=== PATIENT | female | born 1955 | race Caucasian/White ===

== ENCOUNTER 2017-02-05 12:19 | Emergency (ER) | payer BC ==
[~2017-02-05] VITALS: Ht 160 cm; Wt 90.0 kg
[~2017-02-05 12:19] MED LIST: ACETAMIN500 M2 PO; AMLODIPINE5 MG PO; ASA/BUT/CAF1 PO; ASPIRIN EC81 MG PO; C 250 PO; COQ-10100 M1 PO; COREG6.25 MG PO; DIOVAN HC1 PO; DIOVAN40 MG PO; EFFIENT5 MG PO; ELIQUIS5 MG PO; FUROSEMIDE20 MG PO; LEVOTHYROXIN125 MCG PO; LEVOTHYROXINE100 MCG PO; LEXAPRO10 MG PO; LIPITOR80 M1 PO; LOSARTAN POT25 MG PO; LYRICA50 MG PO; MEDDOSEPAK PO; METFORMIN500 M2 PO; METFORMIN500 MG PO; MOBIC15 MG PO; NITROSTAT0.4 MG SL; NORCO1 TA1 PO; NORVASC2.5 MG PO; OMEGA 31000 MG PO; PLAVIX75 MG PO; PRILOSEC20 MG/CAP PO; SOTALOL HCL80 MG PO; TRAMADOL HCL50 MG PO; XANAX0.25 MG PO
[2017-02-05 13:37] LABS: HEMATOCRIT 39.7 % (37.0-47.0); HEMOGLOBIN 13.6 g/dl (12.0-16.0); IMMATURE GRANULOCYTES 0.3 % (0.0-1.0); MEAN CELL VOLUME 88.6 fL CALC (80.0-100.0); MEAN CORPUSCULAR HGB 30.4 pG CALC (26.0-32.0); MEAN CORPUSCULAR HGB CONC 34.3 g/L CALC (32.0-36.0); NEUT# 9.81 thou/uL (2.00-7.15); RED BLOOD COUNT 4.48 mill/uL (4.20-5.60); RED CELL DISTRI WIDTH 12.6 % (11.5-15.5)
[2017-02-05 13:37] LABS: URINE BILIRUBIN - DIPSTICK NEGATIVE (NEGATIVE); URINE BLOOD DIPSTICK LARGE (NEGATIVE); URINE GLUCOSE - DIPSTICK NEGATIVE (NEGATIVE); URINE KETONE NEGATIVE (NEGATIVE); URINE LEUK ESTERASE NEGATIVE (NEGATIVE); URINE NITRITE - DIPSTICK NEGATIVE (Negative); URINE PROTEIN - DIPSTICK 100 mg/dL (NEG-TRACE); URINE SPECIFIC GRAVITY 1.025; URINE UROBILINOGEN - DIPSTICK 0.2 E.U./dL (0.2)
[2017-02-05 13:39] LABS: ALBUMIN 4.2 g/dL (3.2-5.0); ALKALINE PHOSPHATASE 158 u/l (38-126); ANION GAP 15 (6-22 (CALC)); BILIRUBIN, TOTAL 0.5 mg/dL (0.0-1.4); BUN 28 mg/dL (8-23); BUN/CREATININE RATIO 36 (12-20 (CALC)); CALCIUM 9.8 mg/dL (8.4-10.2); CARBON DIOXIDE 23 mmol/l (22-30); CHLORIDE 106 mmol/l (95-108); CREATININE 0.8 mg/dL (0.5-1.0); GFR > 60 ML/MIN (>=60 (CALC)); GFR FOR AFR.AMER. > 60 ML/MIN (>=60 (CALC)); GLUCOSE 129 mg/dL (82-115); SGOT/AST 23 u/l (9-36); SGPT/ALT 28 u/l (11-66); SODIUM 140 mmol/l (137-146); TOTAL PROTEIN 7.2 g/dL (6.3-8.2)
[2017-02-05 13:45] LABS: ACT PARTIAL THROMBO TIME 26.6 SECONDS (20.0-32.5); PROTHROMBIN TIME 11.3 SECONDS (9.0-12.5)
[2017-02-05 13:55] LABS: URINE COLOR BLOODY
[2017-02-05 13:56] LABS: URINE CLARITY BLOODY
[2017-02-05 13:59] LABS: URINE RBC TNTC RBC/hpf (0-5)
[2017-02-05] MEDS ORDERED: BACTRIM DS1 TAB PO (15:22)
[2017-02-05] MEDS ORDERED: DIFLUCAN150 MG PO (15:22)
[2017-02-05] MEDS ORDERED: PYRIDIUM200 MG PO (15:22)
[2017-02-05 15:29] VITALS: BP 140/72
== END 2017-02-05 15:30 | disposition home or self-care (01) | DRG 696 ==
LOC: ED 12:19
PROVIDERS: Emergency Medicine
DX: R31.0 Gross hematuria (principal); M54.5 Low back pain; R30.0 Dysuria

== ENCOUNTER 2018-05-26 17:33 | Observation (INO) | payer BC ==
[~2018-05-26] VITALS: Ht 160 cm; Wt 81.0 kg
[~2018-05-26 17:33] MED LIST changes: +BACTRIM DS1 TAB PO; +DIFLUCAN150 MG PO; +PYRIDIUM200 MG PO
[2018-05-26 18:43] LABS: HEMATOCRIT 42.9 % (37.0-47.0); HEMOGLOBIN 14.2 g/dl (12.0-16.0); IMMATURE GRANULOCYTES 0.5 % (0.0-1.0); MEAN CELL VOLUME 89.6 fL CALC (80.0-100.0); MEAN CORPUSCULAR HGB 29.6 pG CALC (26.0-32.0); MEAN CORPUSCULAR HGB CONC 33.1 g/L CALC (32.0-36.0); NEUT# 3.63 thou/uL (2.00-7.15); RED BLOOD COUNT 4.79 mill/uL (4.20-5.60); RED CELL DISTRI WIDTH 12.9 % (11.5-15.5)
[2018-05-26 18:56] LABS: ALBUMIN 4.5 g/dL (3.2-5.0); ALKALINE PHOSPHATASE 146 u/l (38-126); AMYLASE 71 u/l (30-110); ANION GAP 15 (6-22 (CALC)); BILIRUBIN, TOTAL 0.4 mg/dL (0.0-1.4); BUN 28 mg/dL (8-23); BUN/CREATININE RATIO 29 (12-20 (CALC)); CARBON DIOXIDE 21 mmol/l (22-30); CHLORIDE 107 mmol/l (95-108); GFR 56 ML/MIN (>=60 (CALC)); GFR FOR AFR.AMER. > 60 ML/MIN (>=60 (CALC)); LIPASE 239 u/l (23-300); POTASSIUM 4.7 mmol/l (3.5-5.1); SGOT/AST 20 u/l (9-36); SGPT/ALT 34 u/l (11-66); SODIUM 138 mmol/l (137-146); TOTAL PROTEIN 7.4 g/dL (6.3-8.2)
[2018-05-26] MEDS ORDERED: REPATHA140 MG/ML IM (19:04)
[2018-05-26] MEDS ORDERED: ZOLOFT50 MG PO (19:05)
[2018-05-26 19:07] LABS: MYOGLOBIN 22 ng/mL (0 - 62)
[2018-05-26 19:25] LABS: ACT PARTIAL THROMBO TIME 23.6 SECONDS (20.0-32.5); PROTHROMBIN TIME 10.9 SECONDS (9.0-12.5)
[2018-05-26 19:41] LABS: URINE BILIRUBIN - DIPSTICK NEGATIVE (NEGATIVE); URINE BLOOD DIPSTICK NEGATIVE (NEGATIVE); URINE CLARITY CLEAR; URINE COLOR YELLOW; URINE GLUCOSE - DIPSTICK NEGATIVE (NEGATIVE); URINE KETONE NEGATIVE (NEGATIVE); URINE LEUK ESTERASE NEGATIVE (NEGATIVE); URINE NITRITE - DIPSTICK NEGATIVE (Negative); URINE PROTEIN - DIPSTICK NEGATIVE (NEG-TRACE); URINE UROBILINOGEN - DIPSTICK 0.2 E.U./dL (0.2)
[2018-05-26 21:19] VITALS: BP 151/67
[2018-05-27 00:25] VITALS: BP 137/69
[2018-05-27 04:45] VITALS: BP 129/70
[2018-05-27 06:28] LABS: ANION GAP 10 (6-22 (CALC)); BUN 28 mg/dL (8-23); BUN/CREATININE RATIO 44 (12-20 (CALC)); CALCULATED LDLCHOLESTEROL 29 mg/dL (62-129 (CALC)); CARBON DIOXIDE 26 mmol/l (22-30); CHLORIDE 107 mmol/l (95-108); CHOLESTEROL HDL RATIO 4.1 (<4.4 (CALC)); CREATININE 0.6 mg/dL (0.5-1.0); GFR > 60 ML/MIN (>=60 (CALC)); GFR FOR AFR.AMER. > 60 ML/MIN (>=60 (CALC)); HDL CHOLESTEROL 28 mg/dL (>=40); MAGNESIUM 1.9 mg/dL (1.6-2.3); POTASSIUM 4.1 mmol/l (3.5-5.1); SODIUM 139 mmol/l (137-146); TOTAL CHOLESTEROL 115 mg/dl (0-199); TOTAL TRIGLYCERIDES 291 mg/dl (30-149); VLDL CHOLESTROL 58 mg/dl (1-41 (CALC))
[2018-05-27 07:30] VITALS: BP 134/61
[2018-05-27 11:19] VITALS: BP 134/75
[2018-05-27] MEDS ORDERED: MELATONIN MAXIMU5 MG PO (14:15)
[2018-05-27] MEDS ORDERED: SINGULAIR10 MG PO (14:19)
[2018-05-27] MEDS ORDERED: BAYER ASPIRIN E81 MG PO (14:26)
[2018-05-27] MEDS ORDERED: VICTOZA18 MG/3 ML SC (14:55)
== END 2018-05-27 15:59 | disposition home or self-care (01) | DRG 313 ==
LOC: ED 17:33 → ED-I 19:35 → ED 19:47 → MS2 19:48
PROVIDERS: Emergency Medicine; ADMIT Internal Medicine; ATTEND Internal Medicine
DX: R07.89 Other chest pain (principal); I25.10 Atherosclerotic heart disease of native coronary artery without angina pectoris; I10 Essential (primary) hypertension; E11.9 Type 2 diabetes mellitus without complications; K21.9 Gastro-esophageal reflux disease without esophagitis; E03.9 Hypothyroidism, unspecified; E78.5 Hyperlipidemia, unspecified; M41.9 Scoliosis, unspecified; G47.33 Obstructive sleep apnea (adult) (pediatric); F32.9 Major depressive disorder, single episode, unspecified; I48.0 Paroxysmal atrial fibrillation; M19.90 Unspecified osteoarthritis, unspecified site; R94.4 Abnormal results of kidney function studies; I25.2 Old myocardial infarction; Z79.01 Long term (current) use of anticoagulants; Z95.5 Presence of coronary angioplasty implant and graft; Z95.1 Presence of aortocoronary bypass graft; Z68.31 Body mass index [BMI] 31.0-31.9, adult; Z79.84 Long term (current) use of oral hypoglycemic drugs
CPT/HCPCS: G0378